=== PATIENT | male | born 1990 | race Caucasian/White ===

== ENCOUNTER 2022-10-09 08:33 | Outpatient (CLI) | payer BC ==
[2022-10-09 10:33] LABS: #Basophils 0.1 10x3/uL (0.0-0.2); #Monocytes 0.8 10x3/uL (0.0-1.1); %Lymphocytes 22.9 % (18.0-47.0); %Monocytes 8.2 % (0.0-10.0); %Neutrophils 65.9 % (40.0-75.0); Hemoglobin 15.6 g/dL (13.5-17.5); Mean Corpuscular HGB CONC 34.5 g/dL (32.0-36.0); Mean Corpuscular Hemoglobin 32.8 pg (27.0-33.0); Mean Platelet Volume 10.8 fl (7.4-10.4); Platelet Count 261 10x3/uL (150-450); RBC Distribution Width 12.6 % (11.5-14.5); Red Blood Cell (RBC) Count 4.76 10x6/uL (4.32-5.72); White Blood Cell (WBC) Count 9.1 10x3/uL (3.5-10.5)
== END 2022-10-09 08:34 | disposition home or self-care (01) ==
LOC: LABBT 08:33
PROVIDERS: ATTEND Orthopaedic Surgery
DX: Z01.812 Encounter for preprocedural laboratory examination (principal); M25.561 Pain in right knee
CPT/HCPCS: 85025

== ENCOUNTER 2022-10-12 05:43 | Day surgery (SDC) | payer OTHER ==
[2022-10-11 12:30] VITALS: BMI 32.5
[2022-10-12] MEDS ORDERED: Bupivacaine/Epinephrine 0.25% 30 ML VIAL ONE (06:24)
[2022-10-12] MEDS ORDERED: PROPOFOL 20 ML ONE (06:57)
[2022-10-12] MEDS ORDERED: Ketorolac Tromethamine 30 MG/ML VIAL ONE (07:00)
[2022-10-12] MEDS ORDERED: Dexamethasone 20 MG/5 ML VIAL ONE (07:00)
[2022-10-12] MEDS ORDERED: Ondansetron PF 4 MG/2 ML Vial ONE (07:00)
[2022-10-12] MEDS ORDERED: Lidocaine 1% PF 5 ML VIAL ONE (07:00)
[2022-10-12] MEDS ORDERED: PROPOFOL 200 MG/20 ML VIAL ONE (07:00)
[2022-10-12] MEDS ORDERED: Sodium Chloride 0.9% 100 ML ONE (07:04)
[2022-10-12] MEDS ORDERED: CEFAZOLIN 2 GM VIAL ONE (07:04)
[2022-10-12] MEDS ORDERED: Acetaminophen 500 MG TAB ONE (07:15)
[2022-10-12] MEDS ORDERED: Lidocaine 2% PF 5 ML VIAL ONE (07:20)
[2022-10-12] MEDS ORDERED: Bupivacaine PF 0.5% 30 ML VIAL ONE (07:20)
== END 2022-10-12 10:11 | disposition home or self-care (01) ==
LOC: SDC 05:43
PROVIDERS: ATTEND Orthopaedic Surgery
PROC: 0SBC4ZZ Excision of Right Knee Joint, Percutaneous Endoscopic Approach (ICD-10-PCS; principal; 2022-10-12)
DX: S83.281A Other tear of lateral meniscus, current injury, right knee, initial encounter (principal); M23.8X1 Other internal derangements of right knee; M67.51 Plica syndrome, right knee; Z79.899 Other long term (current) drug therapy; X58.XXXA Exposure to other specified factors, initial encounter; Y93.89 Activity, other specified; Y99.0 Civilian activity done for income or pay
CPT/HCPCS: J1100; J1885; J2001; J2405; J2704; J3490; S0020